=== PATIENT | male | born 1975 | race Caucasian/White ===

== ENCOUNTER 2017-05-27 14:10 | Emergency (ER) | payer BC, OTHER ==
[~2017-05-27] VITALS: Ht 172.7 cm; Wt 91.0 kg
[~2017-05-27 14:10] MED LIST: MULTTAB58 PO
[2017-05-27 14:24] VITALS: TEMP 37; Ht 172.7 cm; Wt 91.0 kg
[2017-05-27] MEDS ORDERED: DIPHTHERIA/TETANUS/PERTUSSIS 0.5 ML SYR/VIAL IM. ONE (14:45)
[2017-05-27] MEDS ORDERED: XYLOCAINE 1%/SOD BICARB 20 ML VIAL INFIL ONE (14:45)
--- NOTE | 2017-05-27 15:34 | DIAGNOSTIC IMAGING REPORT ---
RIGHT KNEE 3 VIEWS HISTORY: Right knee injury with chainsaw COMPARISON: None. FINDINGS: There is no fracture or dislocation. Soft tissue laceration along the anterior medial aspect of the knee. Trace knee effusion. No radiopaque foreign bodies. IMPRESSION: 1. No fractures. 2. Soft tissue laceration at the anterior medial knee. 3. Trace knee effusion. Electronically signed by: Benoit Brewer M.D. 05/27/2017 3:32 PM Dictated Date/Time: 05/27/2017 3:31 PM
[2017-05-27] MEDS ORDERED: DOXY100C2 PO (15:52)
[2017-05-27] MEDS ORDERED: ACYC800T PO (15:52)
[2017-05-27] MEDS ORDERED: CEFT1INJ26 IM (15:52)
[2017-05-27] MEDS ORDERED: Penicillin IM (15:52)
[2017-05-27] MEDS ORDERED: AZIT250T5 PO (15:52)
[2017-05-27] MEDS ORDERED: ATOV5SUS PO (15:52)
--- NOTE | 2017-05-27 16:24 | EMERGENCY ROOM VISIT NOTE ---
ED Visit Note First contact with patient: 14:42 CHIEF COMPLAINT: Leg laceration HISTORY OF PRESENT ILLNESS: This 41-year-old male patient presents to the emergency department immediately after cutting the right knee with a chainsaw. The bleeding has stopped. Denies problems with flexion and extension of the knee. The patient rates the pain as minimal and 2/10. The patient denies any other injuries. The patient's Tetanus shot is not up to date. REVIEW OF SYSTEMS: A 6 system review of systems was completed with positives and pertinent negatives listed in the HPI. ALLERGIES: No known drug allergies MEDICATIONS: Reviewed PMH: Disseminated Lyme disease SOCIAL HISTORY: He does not smoke. Occasionally drinks alcohol. PHYSICAL EXAM: Vital Signs: Reviewed Nurse's notes, vital signs stable. GENERAL : 41-year-old male, in no acute distress, well-developed, well-nourished. SKIN : There are 2 lacerations over the right knee. One is approximately 3 cm long. The other is approximately 2 cm long. The edges gape apart with traction. There is a small amount of debris in the wound. There is no active bleeding. No deep structures such as tendons, bones, or significant blood vessels are seen in the base of the wound. Normal strength and movement of the right knee. EMERGENCY DEPARTMENT COURSE: I examined the patient. A knee x-ray was performed RIGHT KNEE 3 VIEWS HISTORY: Right knee injury with chainsaw COMPARISON: None. FINDINGS: There is no fracture or dislocation. Soft tissue laceration along the anterior medial aspect of the knee. Trace knee effusion. No radiopaque foreign bodies. IMPRESSION: 1. No fractures. 2. Soft tissue laceration at the anterior medial knee. 3. Trace knee effusion. Electronically signed by: Benoit Brewer M.D. 05/27/2017 3:32 PM Dictated Date/Time: 05/27/2017 3:31 PM The status of this report is Signed. Draft = Not yet reviewed or approved by Radiologist. Signed = Reviewed and approved by Radiologist. Verbal consent was obtained to perform the procedure. Using sterile technique the wound was cleansed with Betadine. The area was sterilely draped. 6 ml of 1% buffered lidocaine was used to anesthetize the laceration on the knee. Once the patient was anesthetized, the wound was copiously irrigated under pressure with sterile saline. The wound was explored and was as described above. The laceration was repaired using 11 simple interrupted 4-0 nylon sutures with the wound edges being well approximated. The patient tolerated the procedure well. Hemostasis was achieved. The area was cleaned with sterile saline and dressed with bacitracin ointment and bandage. The patient was given Td immunization. The patient was discharged home in good condition. DIAGNOSIS: Right knee laceration DISCHARGE INSTRUCTIONS & TREATMENT: Keep wound clean. It is okay to gently wash the area with soapy water. Do not submerse it in water for long periods of time such as swimming, going in hot tubs or taking baths until the sutures come out. Do not allow any crusting or dried blood to accumulate on sutures. If this occurs, use a 1:1 solution of hydrogen peroxide/water on a Q-tip to clean the wound. Use an antibiotic ointment for 3-4 days, then let wound dry. Suture removal in 14 days. Return sooner for any signs of infection (increasing redness, swelling, drainage). Ice and elevate for swelling and pain. Ibuprofen 600 mg and Tylenol 1000 mg every 6 hrs for pain.
[2017-05-27 16:31] VITALS: BP 122/88; PULSE 70; O2SAT 96
== END 2017-05-27 16:32 | disposition home or self-care (01) ==
LOC: C.EDB 14:11
DX: S81.811A Laceration without foreign body, right lower leg, initial encounter (principal); W31.89XA Contact with other specified machinery, initial encounter

== ENCOUNTER 2025-06-04 12:21 | Inpatient (IN) ==
[2025-06-04] MEDS: ONDANSETRON INJ 2 MG/ML 2 ML VIAL IV STA ×2 (12:43→19:12)
[2025-06-04] MEDS: HYDROmorphone INJ 0.5 MG/0.5 ML SYR IV PRN (12:44)
[2025-06-04] MEDS: SODIUM CHLORIDE 0.9% 1,000 ML IV STA (12:48)
--- NOTE | 2025-06-04 13:02 | Emergency Department Note ---
Impression & Plan Lumbar disc herniation, Back pain, Kidney stones, Radiculopathy ED Provider Note NAME: CHARLI HOWELL AGE: 49 SEX: M : 1975 ARRIVES VIA: Walk-In INFORMANT: Patient, ED PROVIDER(S): Esteban Mccallum DO CHIEF COMPLAINT: Back pain HPI: The patient is a 49-year-old male who presented to the emergency department for an evaluation of back pain. The patient was seen recently for similar complaints. He was taking pain medication with minimal relief of his symptoms. The patient denies having any hematuria. He denies having any dysuria or frequency. He said no fever. He denies having any chest or vomiting. The patient has been taking the pain medication was prescribed but he presented to the emergency department today because of worsening symptoms. ROS: See above HPI for pertinent positives & negatives. A total of 10 systems reviewed and were otherwise negative. PAST MEDICAL HISTORY: See Below PAST SURGICAL HISTORY: See Below FAMILY HISTORY: See Below SOCIAL HISTORY: See Below HOME MEDICATIONS: See Below ALLERGIES: See Below VITALS: See Below PHYSICAL EXAMINATION: GENERAL: The patient is awake and alert. The patient is very anxious and appears to be uncomfortable. EYES: The conjunctivae are clear. The pupils are round and reactive. EARS, NOSE, MOUTH AND THROAT: The nose is without any evidence of any deformity. NECK: The neck is nontender and supple. RESPIRATORY: Normal respiratory effort is noted there is no evidence of wheezing rhonchi or rales CARDIOVASCULAR: Regular rate and rhythm noted there no murmurs rubs or gallops normal S1 normal S2. GASTROINTESTINAL: The abdomen is soft. Abdomen is nontender. BACK: Diffuse tenderness was noted over the lower lumbar spine. No step-off was noted. Range of motion appears intact but painful. MUSCULOSKELETAL/EXTREMITIES: There is no evidence of gross deformity full range of motion is noted in the hips and shoulders. SKIN: There is no obvious evidence of any rash. There are no petechiae, pallor or cyanosis noted. NEUROLOGIC: Patient is awake alert and oriented x3 strength is symmetric patellar reflexes are 2+ bilaterally. Achilles tendon reflexes are 2+ bilaterally. Great toe raise was symmetric. MEDICAL DECISION MAKING: The patient is a 49-year-old male who presented to the emergency department for an evaluation of back pain. The patient was seen in our facility recently and diagnosed with kidney stones. I reviewed the patient's CAT scan. He does have renal stones but no ureteral calculi. The patient was treated with pain medication in the emergency department. He was reevaluated multiple times. Given the degree of his pain as well as his complaints I do feel the patient would be a candidate for an MRI to further evaluate his symptoms. Unfortunately it did take a long time to get the radiographic studies. The patient was much more comfortable on reevaluation. His disposition is still pending at change of shift. The patient was signed out to Dr. Lyons pending MRI report. Given the patient's degree of pain he may be a candidate for inpatient management. His physical exam was very reassuring but his symptomatology certainly would warrant reevaluation and possible evaluation by orthopedic spinal specialist. Triage Nursing notes reviewed. Prior medical records reviewed Vital Signs: reviewed and remarkable for no significant abnormalities Differential diagnosis: Musculoskeletal, disc herniation, fracture, metastatic disease, cord compression, discitis, sciatica, cauda equina, infection, aortic disease, renal colic, gastrointestinal, as well as other pathologies. ER treatment provided: See below Diagnostics interpreted by me: ECG: none Cardiac Monitoring: An order was placed for continuous cardiac monitoring. The monitor shows a rate of 64 bpm with sinus rhythm. Laboratory studies: As stated above and show below. Imaging studies: See below. Radiographic imaging was reviewed by myself Consultation(s): The patient was signed out at change of shift to Dr. Lyons. MRIs are still pending at this time. The patient was much more comfortable on reevaluation. Past Med/Surg History Problem List (Updated 06/05/25 @ 07:42 by Esteban Mccallum DO) Lumbar disc herniation (Acute) Radiculopathy (Acute) Kidney stones (Acute) Back pain (Acute) Right-sided back pain Kidney stone on left side Renal colic on right side Foot pain, left Foot pain, right Health care maintenance Lyme disease Heart palpitations (Acute) Headache (Acute) Dehydration (Acute) Eczema (Chronic) Heart murmur (Chronic) Medical History Pain aggravated by eating or drinking Abdominal pain Left flank pain Family History Uncle Colorectal cancer Other Breast cancer Denies family history of Ovarian cancer Prostate cancer Myocardial infarction Social History Smoking Status: Never smoker Tobacco Type: Cigarettes and Smokeless Tobacco (Dip or Chew) Second Hand Exposure: No; Do You Dip or Chew Tobacco: No; Tobacco Cessation Education Requested by Patient: No Hx Alcohol Use: Yes Alcohol type: beer Hx Substance Use: No Preferred Language: Tajik Communication Ability: Effective Sales Utility Representative Required: No Beliefs That Will Affect Care: None marital status: Current Living Situation: Spouse current occupational status: employed 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 Other Information That Helps Us Care for You: No Feels Safe at Home: Yes Safety Concerns: Feels Safe At This Time Childhood Exposure to Second-Hand Smoke: No Dental Care, Regularly: Yes Physical Activity Frequency: Daily Physical Activity Frequency Comment: active job Seatbelt Use: always Sunscreen Use: Yes Assistive Devices: None Allergies Allergies Allergy/AdvReac Type Severity Reaction Status Date / Time buspirone AdvReac Severe Headache Verified 06/04/25 21:08 escitalopram AdvReac Severe panic Verified 06/04/25 21:08 attack Home Meds Home Medications Medication Instructions Recorded Confirmed ibuprofen 200 mg capsule 400 - 800 mg PO DIRECTED PRN 08/16/21 06/04/25 Pain Lactobacillus acidophilus 500 500 mmu cells PO DAILY 10/26/21 06/04/25 million cell capsule cholecalciferol (vitamin D3) 25 25 mcg PO DAILY 10/26/21 06/04/25 mcg (1,000 unit) tablet (Vitamin D3) Methylated Multivitamin 1 tab PO DAILY 06/04/25 06/04/25 testosterone cypionate 200 mg/mL See Rx Instructions .Route .COMPLEX 06/04/25 06/04/25 intramuscular syringe Results & Data (ED) Vital Signs Vital Signs - 24 hr 06/04/25 12:23 06/04/25 12:51 06/04/25 12:54 Temperature 36.6 C Temperature Source Temporal Artery Scan Pulse Rate 112 H 96 H 94 H Pulse Rate [Right Finger] Pulse Rate from SpO2 Sensor 95 H Pulse Rhythm Pulse Rhythm [Right Finger] Respiratory Rate 19 19 Respiratory Depth Blood Pressure 140/58 L 120/68 Blood Pressure [Right Arm] Blood Pressure Mean 85 85 Blood Pressure Mean [Right Arm] Pulse Oximetry 100 99 Oxygen Delivery Method Room Air Sepsis Recent Fever Within 48 Hours No Sepsis New/Unexplained Change in Mental Status N/A Sepsis Action Taken by Nursing No Action Required 06/04/25 13:10 06/04/25 13:12 06/04/25 14:42 Temperature Temperature Source Pulse Rate 93 H 90 70 Pulse Rate [Right Finger] Pulse Rate from SpO2 Sensor 91 H 70 Pulse Rhythm Regular Pulse Rhythm [Right Finger] Respiratory Rate 24 15 Respiratory Depth Blood Pressure 128/75 111/66 Blood Pressure [Right Arm] Blood Pressure Mean 92 81 Blood Pressure Mean [Right Arm] Pulse Oximetry 100 100 94 Oxygen Delivery Method Room Air Room Air Sepsis Recent Fever Within 48 Hours Sepsis New/Unexplained Change in Mental Status Sepsis Action Taken by Nursing 06/04/25 16:06 06/04/25 17:50 06/04/25 18:05 Temperature Temperature Source Pulse Rate 80 Pulse Rate [Right Finger] Pulse Rate from SpO2 Sensor 82 66 61 Pulse Rhythm Pulse Rhythm [Right Finger] Respiratory Rate 17 Respiratory Depth Blood Pressure 113/78 126/85 150/76 H Blood Pressure [Right Arm] Blood Pressure Mean 89 98 100 Blood Pressure Mean [Right Arm] Pulse Oximetry 94 92 95 Oxygen Delivery Method Room Air Sepsis Recent Fever Within 48 Hours Sepsis New/Unexplained Change in Mental Status Sepsis Action Taken by Nursing 06/04/25 20:20 Temperature Temperature Source Pulse Rate Pulse Rate [Right Finger] 70 Pulse Rate from SpO2 Sensor Pulse Rhythm Pulse Rhythm [Right Finger] Regular Respiratory Rate 16 Respiratory Depth Normal Blood Pressure Blood Pressure [Right Arm] 129/77 Blood Pressure Mean Blood Pressure Mean [Right Arm] 94 Pulse Oximetry 98 Oxygen Delivery Method Room Air Sepsis Recent Fever Within 48 Hours Sepsis New/Unexplained Change in Mental Status Sepsis Action Taken by Intermediate Medications Current Medication List: was personally reviewed by me Laboratory Data Attestation: I reviewed the patient's lab results. 06/05/25 06:26 06/05/25 06:26 Lab Results 06/04/25 06/04/25 Range/Units 12:43 13:24 WBC 8.01 (4.8-10.8) K/ul RBC 6.23 H (4.70-6.10) M/uL Hgb 18.4 H (14.0-18.0) g/dl Hct 52.1 H (42.0-52.0) % MCV 83.6 (80.0-100.0) fL MCH 29.5 (25.0-34.0) pg MCHC 35.3 (32.0-36.0) g/dL RDW Std Deviation 37.5 (36.4-46.3) fL RDW Coeff of Jorge 12.5 (11.5-14.5) % Plt Count 230 (130-400) K/uL MPV 10.2 (9.4-12.4) fL Immature Gran % (Auto) 0.4 % Neut % (Auto) 60.4 % Lymph % (Auto) 28.7 % [place] % (Auto) 8.2 % Eos % (Auto) 1.6 % Baso % (Auto) 0.7 % Neut # (Auto) 4.83 (1.40-6.50) K/uL Lymph # (Auto) 2.30 (1.20-3.40) K/uL [place] # (Auto) 0.66 H (0.11-0.59) K/uL Eos # (Auto) 0.13 (0.00-0.50) K/uL Baso # (Auto) 0.06 (0.00-0.20) K/uL Immature Gran # (Auto) 0.03 (0.01-0.20) K/uL Sodium 139 (136-145) mmol/L Potassium 3.9 (3.5-5.1) mmol/L Chloride 103 (98-107) mmol/L Carbon Dioxide 24 (21-32) mmol/L Anion Gap 12 H (3-11) BUN 12 (6-23) mg/dl Creatinine 1.21 (0.6-1.4) mg/dl Est Cr Clr Drug Dosing 79.2 ml/min eGFR 73.40 BUN/Creatinine Ratio 9.9 L (10-20) Glucose 93 (70-99(Fasting)) mg/dl Calcium 9.7 (8.6-10.3) mg/dl Total Bilirubin 1.2 H (0.2-1.0) mg/dl AST 24 (13-39) U/L ALT 30 (7-52) U/L Alkaline Phosphatase 59 (34-104) U/L Total Protein 7.4 (6.0-8.3) gm/dl Albumin 4.7 (3.4-5.0) gm/dl Globulin 2.7 (2.5-4.0) gm/dl Albumin/Globulin Ratio 1.7 (0.9-2) Lipase 13 (11-82) U/L Urine Color Yellow Urine Appearance Clear (Clear) Urine pH >= 9.0 H (4.5-7.5) Ur Specific [place] 1.006 (1.000-1.030) Urine Protein Negative (Negative) Urine Glucose (UA) Negative (Negative) Urine Ketones Trace H (Negative) Urine Blood Negative (Negative) Urine Nitrite Negative (Negative) Urine Bilirubin Negative (Negative) Urine Urobilinogen Negative (Negative) Ur Leukocyte Esterase Negative (Negative) Urine Comment Administered Medications Acetaminophen (Acetaminophen 500 Mg Tab) 1,000 mg PO Q8 [facility] Stop: 07/04/25 22:07 Last Admin: 06/05/25 07:11 Dose: Not Given Documented By: Admin: 06/04/25 22:31 Dose: 1,000 mg Documented By: LUISANA Cyclobenzaprine HCl (Cyclobenzaprine Hcl 10 Mg Tab) 10 mg PO BID [facility] Stop: 07/04/25 22:07 Last Admin: 06/05/25 07:35 Dose: 10 mg Documented By: Admin: 06/04/25 22:31 Dose: 10 mg Documented By: LUISANA Lactated Ringer's (Lr) 1,000 mls @ 110 mls/hr IV .Q9H6M [facility] Stop: 06/05/25 18:11 Last Admin: 06/05/25 00:04 Dose: 110 mls/hr Documented By: LUISANA Ketorolac Tromethamine (Ketorolac 30 Mg/Ml Vial) 30 mg IV Q6H PRN PRN Reason: Pain Stop: 06/09/25 22:07 Last Admin: 06/05/25 03:27 Dose: 30 mg Documented By: LUISANA Morphine Sulfate (Morphine Sulfate 4 Mg/Ml 1 Ml Carp\Vial) 4 mg IV Q3H PRN PRN Reason: Pain (6,7,8,9,10) Stop: 06/18/25 22:07 Last Admin: 06/05/25 07:34 Dose: 4 mg Documented By: Admin: 06/05/25 00:55 Dose: 4 mg Documented By: LUISANA Senna/Docusate Sodium (Docusate Sodium/Senna 50/8.6mg Tab) 2 tab PO HS [facility] Stop: 07/04/25 22:07 Last Admin: 06/04/25 22:31 Dose: Not Given Documented By: LUISANA Discontinued Medications Hydromorphone HCl (Hydromorphone Inj 0.5 Mg/0.5 Ml Syr) 0.5 mg IV Q15M PRN PRN Reason: Pain Stop: 06/18/25 12:39 Last Admin: 06/04/25 20:50 Dose: 0.5 mg Documented By: Admin: 06/04/25 19:03 Dose: 0.5 mg Documented By: Admin: 06/04/25 16:34 Dose: 0.5 mg Documented By: Admin: 06/04/25 15:01 Dose: 0.5 mg Documented By: Admin: 06/04/25 13:33 Dose: 0.5 mg Documented By: Admin: 06/04/25 12:44 Dose: 0.5 mg Documented By: SHERRY Sodium Chloride (Nss) 1,000 mls @ 999 mls/hr IV .Q1H1M STA Stop: 06/04/25 13:40 Last Infusion: 06/04/25 13:51 Dose: Infused Documented By: Admin: 06/04/25 12:48 Dose: 999 mls/hr Documented By: SHERRY Lidocaine (Lidocaine 5% 1 Patch) 1 patch TD NOW STA Stop: 06/04/25 21:00 Last Admin: 06/04/25 21:09 Dose: 1 patch Documented By: LAURE Lidocaine (Lidocaine 5% 1 Patch) 1 patch TD NOW STA Stop: 06/04/25 22:09 Last Admin: 06/04/25 22:31 Dose: Not Given Documented By: LUISANA Ondansetron HCl (Ondansetron Inj 2 Mg/Ml 2 Ml Vial) 4 mg IV NOW STA Stop: 06/04/25 12:41 Last Admin: 06/04/25 12:43 Dose: 4 mg Documented By: SHERRY Ondansetron HCl (Ondansetron Inj 2 Mg/Ml 2 Ml Vial) 4 mg IV NOW STA Stop: 06/04/25 19:10 Last Admin: 06/04/25 19:12 Dose: 4 mg Documented By: MILO Imaging Data Attestation: I personally reviewed and interpreted this imaging study as follows: My Impression: X-ray of the orbits were obtained. No metal foreign bodies were appreciated, final report below. Radiologist's Impression: Orbit X-Ray 06/04/25 14:37 XR orbits for MRI CLINICAL HISTORY: Screening for foreign body for MRI COMPARISON STUDY: None FINDINGS: No metallic foreign body seen at the orbits. IMPRESSION: No metallic foreign body seen at the orbits. ACT 112: Negative or not required by law. Electronically signed by: Charanjit Harvey M.D. 06/04/2025 3:17 PM Discharge Plan Visit Data Chief Complaint: Kidney Stone Stated Complaint: KIDNEY STONES ED Provider: Claire Lyons Discharge Problem: Lumbar disc herniation, Back pain, Kidney stones, Radiculopathy Patient Disposition: Admitted As Inpatient Condition: Fair Discharge Instructions Interventions: ED Discharge Assessment Last Done: 06/04/25 21:53
[2025-06-04 13:12] LABS: Hematocrit (blood only) 52.1 % (42.0-52.0); Hemoglobin 18.4 g/dl (14.0-18.0); Immature Granulocytes # (auto) 0.03 K/uL (0.01-0.20); Immature Granulocytes % (auto) 0.4 %; Mean Corpuscular Hemoglobin 29.5 pg (25.0-34.0); Mean Corpuscular Volume 83.6 fL (80.0-100.0); Platelet Count 230 K/uL (130-400); RDW Standard Deviation 37.5 fL (36.4-46.3); Red Blood Count 6.23 M/uL (4.70-6.10); White Blood Count 8.01 K/ul (4.8-10.8)
[2025-06-04 13:18] LABS: Alanine Aminotransferase 30.0 U/L (7-52); Albumin Globulin Ratio 1.7 (0.9-2); Albumin Level 4.7 gm/dl (3.4-5.0); Alkaline Phosphatase 59.0 U/L (34-104); Anion Gap 12.0 (3-11); Bilirubin,Total 1.2 mg/dl (0.2-1.0); Blood Urea Nitrogen 12.0 mg/dl (6-23); Calcium 9.7 mg/dl (8.6-10.3); Carbon Dioxide 24.0 mmol/L (21-32); Chloride 103.0 mmol/L (98-107); Creatinine Clr Calc Pharmacy 79.2 ml/min; Globulin 2.7 gm/dl (2.5-4.0); Glucose 93.0 mg/dl (70-99(Fasting)); Lipase 13.0 U/L (11-82); Potassium 3.9 mmol/L (3.5-5.1); Sodium 139.0 mmol/L (136-145); Total Protein 7.4 gm/dl (6.0-8.3)
[2025-06-04 13:39] LABS: Appearance Urine Clear (Clear); Glucose Urine UA Negative (Negative)
--- NOTE | 2025-06-04 15:18 | XRay Report ---
XR orbits for MRI CLINICAL HISTORY: Screening for foreign body for MRI COMPARISON STUDY: None FINDINGS: No metallic foreign body seen at the orbits. IMPRESSION: No metallic foreign body seen at the orbits. ACT 112: Negative or not required by law. Electronically signed by: Charanjit Harvey M.D. 06/04/2025 3:17 PM
--- NOTE | 2025-06-04 17:14 | Emergency Department Note ---
ED Visit Note Date and Time: 06/04/2025 1700 Interval History: Sign out received from Dr. Mccallum who reviewed details of the encounter. Patient was pending MRI of the lumbar spine. Summary: Patient Continued to have left-sided pain and nausea. He required additional doses of Dilaudid and Zofran. MRI showed evidence of significant disc herniation at L3 level with impingement on the exiting nerve root. This is most likely the cause of the patient's symptoms. I discussed the case with Dr. Mac who will evaluate him in the morning. The patient will be admitted to the hospitalist service. .
--- NOTE | 2025-06-04 17:48 | Magnetic Resonance Report ---
Clinical History: Lower back pain Technique: Sagittal and axial T1 and T2-weighted magnetic resonance images were obtained of the lumbar spine without gadolinium contrast. Findings: S1 is transitional. There is mild scoliosis. No listhesis is seen. No focal osseous lesion is evident. No fracture is identified. There is no definite sign of infection. There is no sign of acute ligamentous injury. The conus medullaris appears normal, terminating at the level of T12-L1. At L1-L2, no pathology is seen At L2-L3, there is a disc bulge and a 22 x 15 x 7 mm left paracentral disc herniation compresses the left L3 nerve root. There is left greater than right neural foramen narrowing that may affect the left L2 nerve root At L3-L4, there is a disc bulge and a small central disc protrusion, without spinal stenosis or compression of the traversing nerve roots. There is mild bilateral neural foramen narrowing At L4-L5, there is a mild disc bulge. There is no spinal stenosis or compression of the traversing nerve roots. There is mild bilateral neural foramen narrowing At L5-S1, there is a disc bulge and a broad-based central disc protrusion that compresses the anterior thecal sac. There is no significant spinal stenosis or compression of the traversing nerve roots. There is bilateral neural foramen narrowing that may affect the exiting L5 nerve roots At S1-2, there is a mild disc bulge without spinal stenosis or nerve root compression. There is mild bilateral neural foramen narrowing Impression: 1. Mild scoliosis 2. Transitional vertebra at the lumbosacral junction, considered S1 in this report 3. L2-3 disc herniation that compresses the left L3 nerve root 4. Left L2-3 and bilateral L5-S1 neural foramen narrowing, which may affect the exiting nerve roots. Less severe neural foramen narrowing is seen at other levels ACT 112: Positive. There are findings on this exam that require communication between the performing entity and the patient following Patient Test Result Information Act ([place] ACT 112) guidelines. Electronically signed by Satnam Burnett 06-04-2025 5:48 PM
--- NOTE | 2025-06-04 17:58 | Magnetic Resonance Report ---
Clinical history: Back pain Technique: Sagittal and axial T1 and T2-weighted magnetic resonance images were obtained of the thoracic spine without gadolinium contrast Findings: The thoracic vertebrae are in normal alignment with no listhesis seen. No fracture is identified. No focal osseous lesion is seen. There is overall normal bone marrow signal intensity. There is no sign of acute ligamentous injury. There is no definite sign of infection. The spinal cord is of normal signal intensity with no focal lesion seen. No definite soft tissue mass or fluid collection is identified. At T1-2, no pathology is seen At T2-3, there is a minimal disc bulge without spinal stenosis. There is mild bilateral neural foramen narrowing At T3-4, there is a mild disc bulge without spinal stenosis or nerve root compression At T4-5, there is mild spinal stenosis at site spinal cord deformity due to a disc bulge and a left paracentral disc protrusion. There is left neural foramen narrowing that may affect the left T4 nerve root At T5-6, there is mild spinal stenosis with slight spinal cord deformity due to a disc bulge and a right paracentral disc protrusion. The neural foramen are patent At T6-7, there is a disc bulge without spinal stenosis. There is mild left neural foramen narrowing From T7-8 through T11-12, no disc herniation is present. There is no spinal stenosis or nerve root compression Impression: 1. Mild spinal stenosis at T4-5 and T5-6 with mild spinal cord deformity due to disc bulges and disc herniations. No cord edema or myelomalacia is seen 2. Left T4-5 neural foramen narrowing that may affect the left T4 nerve root ACT 112: Positive. There are findings on this exam that require communication between the performing entity and the patient following Patient Test Result Information Act ([place] ACT 112) guidelines. Electronically signed by Satnam Burnett 06-04-2025 5:57 PM
--- NOTE | 2025-06-04 20:24 | History & Physical Report ---
Date of Service June 04, 2025 Assessment & Plan (1) Lumbar disc herniation: (2) Back pain: (3) Radiculopathy: Plan 49-year-old male presenting with several days of progressive left back pain with radicular symptoms. Found to have L2-3 disc herniation that compresses the left L3 nerve root. Patient's numbness correspond closely with L3 distribution. No trauma, no fever. Motor strength and reflexes are intact. #Lumbar disc herniation/back pain/radiculopathy Admit to medical telemetry Keep n.p.o. after midnight in the event of possible surgery LR at 110 mL/h x 2 L Bladder scan with straight cath as needed Tylenol 1 g p.o. 3 times daily scheduled Toradol 40 mg IV every 6 hours as needed Morphine 2-4 mg IV every 3 hours based on pain scale Lidoderm patch Flexeril 10 mg p.o. twice daily as needed Heat PT/OT Orthopedics/spine consultation appreciated Patient would prefer to avoid steroids if possible because steroids tend to aggravate his sequela from prior Lyme infection #DVT prophylaxisSCDs History of Present Illness Chief Complaint: Left-sided back pain, numbness left thigh Primary Care Provider: Esteban Miguel MD [facility]ters is a 49yo male with history of Lyme presenting with severe pain in the left back with numbness left thigh. Patient was seen in the ER on 05/28 and thought to have renal stones. He was discharged home on pain management. He has been taking oxycodone every 4 hours as well as a muscle relaxer and ibuprofen but has not had ongoing severe pain. Also with numbness in the left lateral thigh. Symptoms have been ongoing for the last 3 to 4 days. No falls or trauma. He was having some back pain earlier in the week which acutely worsened after he knelt down to tie his shoe. Did not hear a pop or crack. Initially reports some difficulty starting his urinary stream but that has since resolved. Otherwise, denies bowel or bladder complaints. In the ER patient is afebrile, mildly hypertensive otherwise doing well Allergies Allergy/AdvReac Type Severity Reaction Status Date / Time buspirone AdvReac Severe Headache Verified 06/04/25 21:08 escitalopram AdvReac Severe panic Verified 06/04/25 21:08 attack Home Medications Medication Instructions Recorded Confirmed Type ibuprofen 200 mg capsule 400 - 800 mg PO DIRECTED PRN 12/13/21 10/01/25 Hi story Pain Lactobacillus acidophilus 500 500 mmu cells PO DAILY 10/26/21 06/04/25 History million cell capsule cholecalciferol (vitamin D3) 25 25 mcg PO DAILY 10/26/21 06/04/25 History mcg (1,000 unit) tablet (Vitamin D3) Methylated Multivitamin 1 tab PO DAILY 06/04/25 06/04/25 History testosterone cypionate 200 mg/mL See Rx Instructions .Route .COMPLEX 06/04/25 06/04/25 History intramuscular syringe Past Med/Surg History Problem List (Updated 06/05/25 @ 03:03 by Nitza Moscoso DO) Lumbar disc herniation Radiculopathy Kidney stones (Acute) Back pain (Acute) Right-sided back pain Kidney stone on left side Renal colic on right side Foot pain, left Foot pain, right Health care maintenance Lyme disease Heart palpitations (Acute) Headache (Acute) Dehydration (Acute) Eczema (Chronic) Heart murmur (Chronic) Medical History Pain aggravated by eating or drinking Abdominal pain Left flank pain Family History Uncle Colorectal cancer Other Breast cancer Denies family history of Ovarian cancer Prostate cancer Myocardial infarction Social History Smoking Status: Never smoker Tobacco Type: Cigarettes and Smokeless Tobacco (Dip or Chew) Second Hand Exposure: No; Do You Dip or Chew Tobacco: No; Tobacco Cessation Education Requested by Patient: No Hx Alcohol Use: Yes Alcohol type: beer Hx Substance Use: No Preferred Language: Danish Communication Ability: Effective Roll Over Press Operator Required: No Beliefs That Will Affect Care: None marital status: Current Living Situation: Spouse current occupational status: employed current occupation: Utility System Operator Other Information That Helps Us Care for You: No Feels Safe at Home: Yes Safety Concerns: Feels Safe At This Time Childhood Exposure to Second-Hand Smoke: No Dental Care, Regularly: Yes Physical Activity Frequency: Daily Physical Activity Frequency Comment: active job Seatbelt Use: always Sunscreen Use: Yes Assistive Devices: None Review of Systems Review of Systems: All systems reviewed & are unremarkable except as noted in HPI & below Physical Exam Physical Exam: General: patient resting comfortably, NAD, non-toxic in appearance, AA&O x 4 Skin: warm, dry, intact, no rashes or lesions HEENT: NC/AT, PERRL, EOMI, anicteric sclera, conjunctiva without injection, external ear normal to inspection and nontender, nares patent, moist mucus membranes, dentition intact, no oropharyngeal lesions, neck supple, trachea midline, no LAD, no thyromegaly, no JVD Heart: +S1/S2, regular, no m/r/g Lungs: equal air entry bilaterally, no rales/rhonchi/wheezes Abd: +BS, soft, NT/ND, no masses/organomegaly/ascites Ext: warm, 2+ pulses in UE/LE bilaterally, no clubbing/cyanosis or edema Neuro: nonfocal, patient AA&O x 4, speech intact, no facial droop, moving all extremities on command with equal strength 5/5, Numbness on left anterior thigh strength and reflexes intact Results & Data Results & Data Vital Signs (Past 12 Hours) Vital Signs Temp Pulse Pulse Resp BP BP Pulse Ox 06/04/25 20:20 70 16 129/77 98 06/04/25 18:05 150/76 H 95 06/04/25 17:50 126/85 92 06/04/25 16:06 80 17 113/78 94 06/04/25 14:42 70 15 111/66 94 06/04/25 13:12 90 24 128/75 100 06/04/25 13:10 93 H 100 06/04/25 12:54 94 H 19 120/68 99 06/04/25 12:51 96 H 06/04/25 12:23 36.6 C 112 H 19 140/58 L 100 O2 Del Method 06/04/25 20:20 Room Air 06/04/25 18:05 Room Air 06/04/25 17:50 06/04/25 16:06 06/04/25 14:42 Room Air 06/04/25 13:12 06/04/25 13:10 Room Air 06/04/25 12:54 06/04/25 12:51 06/04/25 12:23 Room Air Laboratory Results Laboratory Results WBC 8.01 K/ul (4.8-10.8) 06/04/25 12:43 RBC 6.23 M/uL (4.70-6.10) H 06/04/25 12:43 Hgb 18.4 g/dl (14.0-18.0) H 06/04/25 12:43 Hct 52.1 % (42.0-52.0) H 06/04/25 12:43 MCV 83.6 fL (80.0-100.0) 06/04/25 12:43 MCH 29.5 pg (25.0-34.0) 06/04/25 12:43 MCHC 35.3 g/dL (32.0-36.0) 06/04/25 12:43 RDW Std Deviation 37.5 fL (36.4-46.3) 06/04/25 12:43 RDW Coeff of Jorge 12.5 % (11.5-14.5) 06/04/25 12:43 Plt Count 230 K/uL (130-400) 06/04/25 12:43 MPV 10.2 fL (9.4-12.4) 06/04/25 12:43 Immature Gran % (Auto) 0.4 % 06/04/25 12:43 Neut % (Auto) 60.4 % 06/04/25 12:43 Lymph % (Auto) 28.7 % 06/04/25 12:43 Citrus % (Auto) 8.2 % 06/04/25 12:43 Eos % (Auto) 1.6 % 06/04/25 12:43 Baso % (Auto) 0.7 % 06/04/25 12:43 Neut # (Auto) 4.83 K/uL (1.40-6.50) 06/04/25 12:43 Lymph # (Auto) 2.30 K/uL (1.20-3.40) 06/04/25 12:43 Citrus # (Auto) 0.66 K/uL (0.11-0.59) H 06/04/25 12:43 Eos # (Auto) 0.13 K/uL (0.00-0.50) 06/04/25 12:43 Baso # (Auto) 0.06 K/uL (0.00-0.20) 06/04/25 12:43 Immature Gran # (Auto) 0.03 K/uL (0.01-0.20) 06/04/25 12:43 Sodium 139 mmol/L (136-145) 06/04/25 12:43 Potassium 3.9 mmol/L (3.5-5.1) 06/04/25 12:43 Chloride 103 mmol/L (98-107) 06/04/25 12:43 Carbon Dioxide 24 mmol/L (21-32) 06/04/25 12:43 Anion Gap 12 (3-11) H 06/04/25 12:43 BUN 12 mg/dl (6-23) 06/04/25 12:43 Creatinine 1.21 mg/dl (0.6-1.4) 06/04/25 12:43 Est Cr Clr Drug Dosing 79.2 ml/min 06/04/25 12:43 eGFR 73.40 06/04/25 12:43 BUN/Creatinine Ratio 9.9 (10-20) L 06/04/25 12:43 Glucose 93 mg/dl (70-99(Fasting)) 06/04/25 12:43 Calcium 9.7 mg/dl (8.6-10.3) 06/04/25 12:43 Total Bilirubin 1.2 mg/dl (0.2-1.0) H 06/04/25 12:43 AST 24 U/L (13-39) 06/04/25 12:43 ALT 30 U/L (7-52) 06/04/25 12:43 Alkaline Phosphatase 59 U/L (34-104) 06/04/25 12:43 Total Protein 7.4 gm/dl (6.0-8.3) 06/04/25 12:43 Albumin 4.7 gm/dl (3.4-5.0) 06/04/25 12:43 Globulin 2.7 gm/dl (2.5-4.0) 06/04/25 12:43 Albumin/Globulin Ratio 1.7 (0.9-2) 06/04/25 12:43 Lipase 13 U/L (11-82) 06/04/25 12:43 Urine Color Yellow 06/04/25 13:24 Urine Appearance Clear (Clear) 06/04/25 13:24 Urine pH >= 9.0 (4.5-7.5) H 06/04/25 13:24 Ur Specific [place] 1.006 (1.000-1.030) 06/04/25 13:24 Urine Protein Negative (Negative) 06/04/25 13:24 Urine Glucose (UA) Negative (Negative) 06/04/25 13:24 Urine Ketones Trace (Negative) H 06/04/25 13:24 Urine Blood Negative (Negative) 06/04/25 13:24 Urine Nitrite Negative (Negative) 06/04/25 13:24 Urine Bilirubin Negative (Negative) 06/04/25 13:24 Urine Urobilinogen Negative (Negative) 06/04/25 13:24 Ur Leukocyte Esterase Negative (Negative) 06/04/25 13:24 Urine Comment 06/04/25 13:24 Impressions Lumbar Spine MRI 06/04/25 13:08 Clinical History: Lower back pain Technique: Sagittal and axial T1 and T2-weighted magnetic resonance images were obtained of the lumbar spine without gadolinium contrast. Findings: S1 is transitional. There is mild scoliosis. No listhesis is seen. No focal osseous lesion is evident. No fracture is identified. There is no definite sign of infection. There is no sign of acute ligamentous injury. The conus medullaris appears normal, terminating at the level of T12-L1. At L1-L2, no pathology is seen At L2-L3, there is a disc bulge and a 22 x 15 x 7 mm left paracentral disc herniation compresses the left L3 nerve root. There is left greater than right neural foramen narrowing that may affect the left L2 nerve root At L3-L4, there is a disc bulge and a small central disc protrusion, without spinal stenosis or compression of the traversing nerve roots. There is mild bilateral neural foramen narrowing At L4-L5, there is a mild disc bulge. There is no spinal stenosis or compression of the traversing nerve roots. There is mild bilateral neural foramen narrowing At L5-S1, there is a disc bulge and a broad-based central disc protrusion that compresses the anterior thecal sac. There is no significant spinal stenosis or compression of the traversing nerve roots. There is bilateral neural foramen narrowing that may affect the exiting L5 nerve roots At S1-2, there is a mild disc bulge without spinal stenosis or nerve root compression. There is mild bilateral neural foramen narrowing Impression: 1. Mild scoliosis 2. Transitional vertebra at the lumbosacral junction, considered S1 in this report 3. L2-3 disc herniation that compresses the left L3 nerve root 4. Left L2-3 and bilateral L5-S1 neural foramen narrowing, which may affect the exiting nerve roots. Less severe neural foramen narrowing is seen at other levels ACT 112: Positive. There are findings on this exam that require communication between the performing entity and the patient following Patient Test Result Information Act ([place] ACT 112) guidelines. Electronically signed by Satnam Burnett 06-04-2025 5:48 PM Thoracic Spine MRI 06/04/25 13:08 Clinical history: Back pain Technique: Sagittal and axial T1 and T2-weighted magnetic resonance images were obtained of the thoracic spine without gadolinium contrast Findings: The thoracic vertebrae are in normal alignment with no listhesis seen. No fracture is identified. No focal osseous lesion is seen. There is overall normal bone marrow signal intensity. There is no sign of acute ligamentous injury. There is no definite sign of infection. The spinal cord is of normal signal intensity with no focal lesion seen. No definite soft tissue mass or fluid collection is identified. At T1-2, no pathology is seen At T2-3, there is a minimal disc bulge without spinal stenosis. There is mild bilateral neural foramen narrowing At T3-4, there is a mild disc bulge without spinal stenosis or nerve root compression At T4-5, there is mild spinal stenosis at site spinal cord deformity due to a disc bulge and a left paracentral disc protrusion. There is left neural foramen narrowing that may affect the left T4 nerve root At T5-6, there is mild spinal stenosis with slight spinal cord deformity due to a disc bulge and a right paracentral disc protrusion. The neural foramen are patent At T6-7, there is a disc bulge without spinal stenosis. There is mild left neural foramen narrowing From T7-8 through T11-12, no disc herniation is present. There is no spinal stenosis or nerve root compression Impression: 1. Mild spinal stenosis at T4-5 and T5-6 with mild spinal cord deformity due to disc bulges and disc herniations. No cord edema or myelomalacia is seen 2. Left T4-5 neural foramen narrowing that may affect the left T4 nerve root ACT 112: Positive. There are findings on this exam that require communication between the performing entity and the patient following Patient Test Result Information Act ([place] ACT 112) guidelines. Electronically signed by Satnam Burnett 06-04-2025 5:57 PM Orbit X-Ray 06/04/25 14:37 XR orbits for MRI CLINICAL HISTORY: Screening for foreign body for MRI COMPARISON STUDY: None FINDINGS: No metallic foreign body seen at the orbits. IMPRESSION: No metallic foreign body seen at the orbits. ACT 112: Negative or not required by law. Electronically signed by: Charanjit Harvey M.D. 06/04/2025 3:17 PM PG Care Time/CCT Total # of Minutes Spent Total Time Spent with Patient: Total time spent is greater than 50% in coordination of care (as documented) at patient's floor/unit and/or counseling patient: Coding Level of Care Code 68489 INT INP/OBS CARE 375MIN Diagnoses Lumbar disc herniation M51.26 Back pain M54.9 Radiculopathy M54.10
[2025-06-04] MEDS: LIDOCAINE 5% 1 PATCH TD STA ×2 (21:09→22:31)
[2025-06-04] MEDS ORDERED: MoRPHine SULFATE 2 MG/ML CARP IV PRN (22:08)
[2025-06-04] MEDS ORDERED: POLYETHYLENE (MIRALAX) 17 GM PACK PO PRN (22:08)
[2025-06-04] MEDS ORDERED: ONDANSETRON INJ 2 MG/ML 2 ML VIAL IV PRN (22:08)
[2025-06-04] MEDS: DOCUSATE SODIUM/SENNA 50/8.6MG TAB PO SCH (22:31)
[2025-06-04] MEDS: ACETAMINOPHEN 500 MG TAB PO SCH (22:31)
[2025-06-04] MEDS: CYCLOBENZAPRINE HCL 10 MG TAB PO SCH (22:31)
[2025-06-05] MEDS: LACTATED RINGER'S 1,000 ML IV SCH (00:04)
[2025-06-05] MEDS: MoRPHine SULFATE 4 MG/ML 1 ML CARP\\VIAL IV PRN (00:55)
[2025-06-05] MEDS: KETOROLAC 30 MG/ML VIAL IV PRN (03:27)
[2025-06-05 07:19] LABS: Anion Gap 5.0 (3-11); Blood Urea Nitrogen 18.0 mg/dl (6-23); Calcium 8.4 mg/dl (8.6-10.3); Carbon Dioxide 28.0 mmol/L (21-32); Chloride 106.0 mmol/L (98-107); Creatinine Clr Calc Pharmacy 80.7 ml/min; Glucose 82.0 mg/dl (70-99(Fasting)); Potassium 4.0 mmol/L (3.5-5.1); Sodium 139.0 mmol/L (136-145)
[2025-06-05 07:35] LABS: Hematocrit (blood only) 47.8 % (42.0-52.0); Hemoglobin 15.8 g/dl (14.0-18.0); Mean Corpuscular Hemoglobin 29.4 pg (25.0-34.0); Mean Corpuscular Volume 88.8 fL (80.0-100.0); Platelet Count 182 K/uL (130-400); RDW Standard Deviation 41.7 fL (36.4-46.3); Red Blood Count 5.38 M/uL (4.70-6.10); White Blood Count 5.79 K/ul (4.8-10.8)
--- NOTE | 2025-06-05 08:29 | Orthopedic Consultation ---
Date of Consultation June 05, 2025 Assessment & Plan (1) Lumbar disc herniation: Assessment L to L3 disc herniation with free fragment migrating cephalad on the left. Plan the patient's MRI clearly supports his clinical presentation. We discussed possible treatment options. This could include consultation with interventional pain management and trial of epidural injections. Ultimately if he fails to improve continues to require narcotic medications and pain becomes incapacitating lumbar laminectomy with removal of herniated fragment would be reasonable. At this time he would prefer to pursue a nonoperative approach if possible. I will consult interventional pain management. If he is any change or marked clinical status we can always consider surgery. History of Present Illness Reason for Consultation: Left leg pain Attending Physician: Ella Banks MD History of Present Illness This a very pleasant 49-year-old male who presents to emergency room yesterday for the second time complaining of severe pain involving the left buttock left anterior thigh. The shocklike symptoms. He denies any specific trauma fall or event. He states the symptoms began approximately a week ago. The right lower extremity is asymptomatic. He is requiring significant medications to control his symptoms at this time. This morning he is comfortable while in bed. He states he has been able to ambulate to the bathroom. Allergies Allergy/AdvReac Type Severity Reaction Status Date / Time buspirone AdvReac Severe Headache Verified 06/04/25 21:08 escitalopram AdvReac Severe panic Verified 06/04/25 21:08 attack Home Medications Medication Instructions Recorded Confirmed Type ibuprofen 200 mg capsule 400 - 800 mg PO DIRECTED PRN 08/16/21 06/04/25 History Pain Lactobacillus acidophilus 500 500 mmu cells PO DAILY 10/26/21 06/04/25 History million cell capsule cholecalciferol (vitamin D3) 25 25 mcg PO DAILY 10/26/21 06/04/25 History mcg (1,000 unit) tablet (Vitamin D3) Methylated Multivitamin 1 tab PO DAILY 06/04/25 06/04/25 History testosterone cypionate 200 mg/mL See Rx Instructions .Route .COMPLEX 06/04/25 06/04/25 History intramuscular syringe Patient History Medical History Pain aggravated by eating or drinking Abdominal pain Left flank pain Family History Uncle Colorectal cancer Other Breast cancer Denies family history of Ovarian cancer Prostate cancer Myocardial infarction Social History Smoking Status: Never smoker Tobacco Type: Cigarettes and Smokeless Tobacco (Dip or Chew) Second Hand Exposure: No; Do You Dip or Chew Tobacco: No; Tobacco Cessation Education Requested by Patient: No Hx Alcohol Use: Yes Alcohol type: beer Hx Substance Use: No Preferred Language: Chinese Communication Ability: Effective Rock Breaker Required: No Beliefs That Will Affect Care: None marital status: Current Living Situation: Spouse current occupational status: employed current occupation: Freelance Makeup Artist Other Information That Helps Us Care for You: No Feels Safe at Home: Yes Safety Concerns: Feels Safe At This Time Childhood Exposure to Second-Hand Smoke: No Dental Care, Regularly: Yes Physical Activity Frequency: Daily Physical Activity Frequency Comment: active job Seatbelt Use: always Sunscreen Use: Yes Assistive Devices: None Physical Exam Physical Exam: On exam he has no gross tension signs. He has plus 4 out of 5 plantarflexion dorsiflexion quadriceps. Sensory is intact. Results & Data Vital Signs (Past 12 Hours) Vital Signs Temp Pulse Pulse Pulse Resp BP BP 06/05/25 07:39 36.5 C 90 18 06/05/25 05:51 64 06/05/25 04:00 36.6 C 78 18 131/79 06/04/25 22:14 36.8 C 75 16 06/04/25 22:05 72 06/04/25 21:53 80 18 125/74 06/04/25 21:13 82 BP Pulse Ox O2 Del Method 06/05/25 07:39 127/78 100 Room Air 06/05/25 05:51 06/05/25 04:00 97 Room Air 06/04/25 22:14 139/86 98 Room Air 06/04/25 22:05 06/04/25 21:53 98 Room Air 06/04/25 21:13
[2025-06-05] MEDS ORDERED: REMOVE LIDODERM PATCH SCH (09:00)
[2025-06-05] MEDS: REMOVE LIDODERM PATCH SCH (10:10)
--- NOTE | 2025-06-05 12:55 | Pain Management Consultation ---
Date of Consultation June 05, 2025 Assessment & Plan (1) Lumbar disc herniation: Plan 1. We have discussed pursuing a left L2-L3 transforaminal epidural steroid injection on an outpatient basis. I spent a good deal of time with him explaining expectations and he would like to proceed with surgery if Dr. Mac finds it indicated. 2. Could consider the initiation of gabapentin and an oral prednisone taper. He has not been placed on a prednisone taper as he finds that it does aggravate symptoms from prior Lyme disease infection. 3. No changes were made to his medication regimen of Tylenol, Flexeril, Toradol, morphine. 4. Will sign off on the patient. Please contact with any questions or concerns. History of Present Illness Attending Physician: Ella Banks MD History of Present Illness This is a 49-year-old male that has been admitted to the [facility] for acute low back pain. He states that this pain started abruptly 1 week ago after he was bending forward to pick something off the ground he felt a sudden popping pain along the left low back. He describes a constant deep aching along the low back and a burning searing sensation along the anterior aspect of the left thigh. He approximates 25% axial pain and 75% radicular symptoms. He did go to the emergency department on 05/28/2025 for this pain and assumed that it was a kidney stone. He was sent home with etodolac, oxycodone, cyclobenzaprine. He states that he was taking these medications every 4 hours which was barely addressing the pain. He did then visit the emergency department again yesterday and found to have a disc herniation at L2-L3 that is impinging upon the left L3 nerve and admitted for pain control. Pain is aggravated with standing and improved with laying supine. He reports significant limitation to performing his daily activities. He states that he has not been able to sleep due to the pain and discomfort. He has been evalua haim by Dr. Mac and they did discuss pursuing interventional procedures prior to consideration of surgical options. Patient denies any bowel/bladder incontinence, saddle anesthesia, foot drop, leg weakness, falls. Case discussed with Dr. Camille Fragoso Allergies Allergy/AdvReac Type Severity Reaction Status Date / Time buspirone AdvReac Severe Headache Verified 06/04/25 21:08 escitalopram AdvReac Severe panic Verified 06/04/25 21:08 attack Home Medications Medication Instructions Recorded Confirmed Type ibuprofen 200 mg capsule 400 - 800 mg PO DIRECTED PRN 08/16/21 06/04/25 History Pain Lactobacillus acidophilus 500 500 mmu cells PO DAILY 10/26/21 06/04/25 History million cell capsule cholecalciferol (vitamin D3) 25 25 mcg PO DAILY 10/26/21 06/04/25 History mcg (1,000 unit) tablet (Vitamin D3) Methylated Multivitamin 1 tab PO DAILY 06/04/25 06/04/25 History testosterone cypionate 200 mg/mL See Rx Instructions .Route .COMPLEX 06/04/25 06/04/25 History intramuscular syringe Patient History Medical History Pain aggravated by eating or drinking Abdominal pain Left flank pain Family History Uncle Colorectal cancer Other Breast cancer Denies family history of Ovarian cancer Prostate cancer Myocardial infarction Social History Smoking Status: Never smoker Tobacco Type: Cigarettes and Smokeless Tobacco (Dip or Chew) Second Hand Exposure: No; Do You Dip or Chew Tobacco: No; Tobacco Cessation Education Requested by Patient: No Hx Alcohol Use: Yes Alcohol type: beer Hx Substance Use: No Preferred Language: Kinyarwanda Communication Ability: Effective 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 Able to stand up without any difficulty. HEAD/FACE: Normocephalic and atraumatic. EYES: No drainage or conjunctival injection. ENT: Nose without bleeding or discharge. Oral mucosa moist. NECK: Full ROM without apparent pain. No swelling or masses noted. RESPIRATORY: Patient with unlabored breathing. No signs of respiratory distress. CHEST/AXILLA: Chest movement symmetrical. No deformities noted. ABDOMEN/GI: No distension BACK: Moves without difficulty SKIN: [place], warm and dry. No rash noted. MS/EXTREMITY: 5/5 strength of the lower extremities. Negative straight leg raise. NEURO: Alert and appears oriented. Speech is fluent. Cranial Nerves are grossly intact. PSYCH: Alert, pleasant, anxious Results (Pain Clinic) Diagnostic Review MRI Findings: Clinical History: Lower back pain Technique: Sagittal and axial T1 and T2-weighted magnetic resonance images were obtained of the lumbar spine without gadolinium contrast. Findings: S1 is transitional. There is mild scoliosis. No listhesis is seen. No focal osseous lesion is evident. No fracture is identified. There is no definite sign of infection. There is no sign of acute ligamentous injury. The conus medullaris appears normal, terminating at the level of T12-L1. At L1-L2, no pathology is seen At L2-L3, there is a disc bulge and a 22 x 15 x 7 mm left paracentral disc herniation compresses the left L3 nerve root. There is left greater than right neural foramen narrowing that may affect the left L2 nerve root At L3-L4, there is a disc bulge and a small central disc protrusion, without spinal stenosis or compression of the traversing nerve roots. There is mild bilateral neural foramen narrowing At L4-L5, there is a mild disc bulge. There is no spinal stenosis or compression of the traversing nerve roots. There is mild bilateral neural foramen narrowing At L5-S1, there is a disc bulge and a broad-based central disc protrusion that compresses the anterior thecal sac. There is no significant spinal stenosis or compression of the traversing nerve roots. There is bilateral neural foramen narrowing that may affect the exiting L5 nerve roots At S1-2, there is a mild disc bulge without spinal stenosis or nerve root compression. There is mild bilateral neural foramen narrowing Impression: 1. Mild scoliosis 2. Transitional vertebra at the lumbosacral junction, considered S1 in this report 3. L2-3 disc herniation that compresses the left L3 nerve root 4. Left L2-3 and bilateral L5-S1 neural foramen narrowing, which may affect the exiting nerve roots. Less severe neural foramen narrowing is seen at other levels ACT 112: Positive. There are findings on this exam that require communication between the performing entity and the patient following Patient Test Result Information Act ([place] ACT 112) guidelines. Electronically signed by Satnam Burnett 06-04-2025 5:48 PM
--- NOTE | 2025-06-05 14:59 | Hospitalist Progress Note ---
"Date of Service June 05, 2025 Assessment & Plan (1) Lumbar disc herniation: (2) Back pain: (3) Radiculopathy: Plan #Lumbar disc herniation|lumbar back pain|radiculopathy -NSR 60s-90s med-tele LR at 110 mL/h x 2 L Bladder scan with straight cath as needed Tylenol 1 g PO TID scheduled Toradol 30 mg IV every 6 hours as needed -Morphine 2-4 mg IV every 3 hours based on pain scale Flexeril 10 mg po BID PRN for lumbar spasms PT/OT -pain management consultation signed off as he opts to proceed with surgery, consideration of addition of Gabapentin if needed -orthopedic spine consultation with Dr. Mac-electing for surgery, scheduled 06/05/25 -diet advanced to regular, NPO after MN tonight #DVT prophylaxisSCDs Admission and Anticipated Discharge Date Admission Date: June 04, 2025 Subjective Patient lying in bed this am. Seen in ED at [facility] on 05/28/25 for c/o left sided flank pain and possible kidney stone. CTAP with 2 nonobstructing left renal calculi measuring up to 5mm. D/C'ed with etodolac, oxycodone and flexeril. Presented to ED last evening (06/04/25) with c/o intractable left-sided, localized lumbar pain. MRI of lumbar spine with appreciation of L2-L3 disc herniation compressing L3 nerve root. Reports numbness and tingling sensation to left anterior thigh area with localized left sided lumbar pain. Reports relief of pain with Morphine dosing. Cannot tolerate steroids as he finds it aggravates symptoms from prior Lyme's infection. Denies cauda equina symptoms. Seen by Dr. Mac this am with recommendation for consultation with interventional pain and possible epidural steroid injection vs surgical intervention. Patient seen by interventional pain this afternoon and is opting to proceed with surgery if indicated per Dr Mac. Dr. Mac provided update and patient will be slated for surgery tomorrow. Review of Systems Review of Systems: All systems reviewed & are unremarkable except as noted in Subjective Physical Exam Physical Exam: GENERAL APPEARANCE: A&O. Sitting comfortably on stretcher. NAD. SKIN: Normal color without rashes or lesions. Normal turgor. HEENT: Head AT/NC. Buccal mucosa is moist and pink. NECK: No jugular venous distention. No thyroid enlargement. There is no lymphadenopathy. HEART: RRR without m/g/r LUNGS: Normal inspiratory effort. CTA without w/r/r ABDOMEN: No guarding or rigidity. Normoactive BS in all four quadrants. Abdomen soft and NT. MSK: No bony gross/deformities throughout. ROM intact. TTP left lumbar area. EXTREMITIES: No edema, No peripheral cyanosis. Decreased sensation with touch to left anterior thigh. 5/5 strength in BL lower ext. +dorsiflexion/plantar flexion of BL lower ext. Sensation intact to BL lower ext. Neuro: CN 2-12 grossly intact. No focal neuro deficits PSYCHIATRIC: Normal affect. Eye contact is good. Speech is normal rate and content. Responses are appropriate. Results & Data Results & Data Vital Signs (Past 12 Hours) Vital Signs Temp Pulse Pulse Pulse Resp BP BP 06/05/25 13:01 90 06/05/25 11:15 36.7 C 73 18 121/76 06/05/25 07:39 36.5 C 90 18 127/78 06/05/25 05:51 64 06/05/25 04:00 36.6 C 78 18 131/79 Pulse Ox O2 Del Method 06/05/25 13:01 06/05/25 11:15 100 Room Air 06/05/25 07:39 100 Room Air 06/05/25 05:51 06/05/25 04:00 97 Room Air PG Care Time/CCT Total # of Minutes Spent Total Time Spent with Patient: Total time spent is greater than 50% in coordination of care (as documented) at patient's floor/unit and/or counseling patient: Coding Level of Care Code 31089 SUB INP/OBS CARE 3/50MIN Diagnoses Lumbar disc herniation M51.26 Back pain M54.9 Radiculopathy M54.10"
--- NOTE | 2025-06-06 09:07 | History & Physical Bridge Note ---
Date of Service June 06, 2025 History & Physical Bridge Note I have examined the patient, reviewed the History & Physical and in the interval since the performance of the History & Physical I have noted the following changes of clinical significance: no changes noted Patient continues to require IV narcotic medication to control his pain. He is taking it regularly. He has marked deficits with hip flexion on the left at a 3/5 compared to 5/5 on the right. In light of his narcotic requirements and progressive neurologic deficits in order to avoid permanent functional loss I am recommending emergent lumbar laminectomy L2-L3 on the left.
[2025-06-06] MEDS ORDERED: DEXAMETHASONE SOD INJ 4 MG/ML VIAL ONE (10:31)
[2025-06-06] MEDS ORDERED: LIDOCAINE 2% 2 ML VIAL/AMP(20MG/ML) INFIL ONE (10:31)
[2025-06-06] MEDS ORDERED: ONDANSETRON INJ 2 MG/ML 2 ML VIAL ONE (10:31)
[2025-06-06] MEDS ORDERED: ROCURONIUM BROMIDE 10 MG/ML 5 ML VIAL IV ONE (10:31)
[2025-06-06] MEDS ORDERED: GLYCOPYRROLATE 0.2 MG/ML VIAL ONE (10:31)
[2025-06-06] MEDS ORDERED: NEOSTIGMINE METHYLSULFATE 1 MG/ML 10ML VIAL ONE (10:31)
[2025-06-06] MEDS ORDERED: PROPOFOL IV EMULSION 10 MG/ML 20 ML VIAL IV ONE (10:31)
[2025-06-06] MEDS ORDERED: MIDAZOLAM HCL 1 MG/ML 2ML VIAL ONE (10:32)
[2025-06-06] MEDS: LACTATED RINGER'S 1,000 ML IV SCH (10:45)
[2025-06-06] MEDS ORDERED: HYDROmorphone INJ 2 MG/ML SYR/VIAL IV PRN (10:47)
[2025-06-06] MEDS ORDERED: ATROPINE SULFATE 0.1 MG/ML 10ML SYR IV PRN (10:47)
[2025-06-06] MEDS ORDERED: ONDANSETRON INJ 2 MG/ML 2 ML VIAL IV PRN ×2 (10:47→13:44)
[2025-06-06] MEDS ORDERED: SUGAMMADEX SODIUM 200 MG/2 ML VIAL IV ONE (11:57)
--- NOTE | 2025-06-06 12:11 | Hospitalist Progress Note ---
"Date of Service June 06, 2025 Assessment & Plan (1) Lumbar disc herniation: (2) Back pain: (3) Radiculopathy: Plan #Lumbar disc herniation|lumbar back pain|radiculopathy -NSR 60s-100s med-tele Bladder scan with straight cath as needed Tylenol 1 g PO TID scheduled Toradol 30 mg IV every 6 hours as needed -Morphine 2-4 mg IV every 3 hours based on pain scale Flexeril 10 mg po BID PRN for lumbar spasms PT/OT -pain management consultation signed off as patient opted to proceed with surgery and not trial epidural steroid injection -scheduled surgery today with Dr. Mac #DVT prophylaxisSCDs Admission and Anticipated Discharge Date Admission Date: June 04, 2025 Subjective Patient seen this am prior to going to OR for lumbar laminectomy L2-L3 on the left with Dr. Mac. Visibly uncomfortable sitting up at the bedside with present. Consistently taking IV Morphine for relief of radiculopathy pain. Has been [employer] since [place]. Review of Systems Review of Systems: All systems reviewed & are unremarkable except as noted in Subjective Physical Exam Physical Exam: SKIN: Normal color without rashes or lesions. Normal turgor. HEENT: Head AT/NC. Buccal mucosa is moist and pink. HEART: RRR without m/g/r LUNGS: Normal inspiratory effort. CTA without w/r/r ABDOMEN: No guarding or rigidity. Normoactive BS in all four quadrants. Abdomen soft and NT. MSK: No bony gross/deformities throughout. ROM intact. TTP left lumbar area. EXTREMITIES: No edema, No peripheral cyanosis. Decreased sensation with touch to left anterior thigh. 5/5 strength in RLE, 4/5 LLE. +dorsiflexion/plantar flexion of BL lower ext. Sensation intact to BL lower ext. Neuro: CN 2-12 grossly intact. No focal neuro deficits PSYCHIATRIC: Normal affect. Eye contact is good. Speech is normal rate and content. Responses are appropriate. Results & Data Results & Data Vital Signs (Past 12 Hours) Vital Signs Temp Pulse Pulse Resp BP BP Pulse Ox 06/06/25 10:47 36.8 C 105 H 18 141/88 H 100 06/06/25 08:24 36.7 C 82 16 128/76 128/76 99 06/06/25 07:04 66 06/06/25 04:00 36.7 C 70 18 143/84 H 94 06/06/25 00:21 98 H O2 Del Method 06/06/25 10:47 Room Air 06/06/25 08:24 Room Air 06/06/25 07:04 06/06/25 04:00 Room Air 06/06/25 00:21 PG Care Time/CCT Total # of Minutes Spent Total Time Spent with Patient: Total time spent is greater than 50% in coordination of care (as documented) at patient's floor/unit and/or counseling patient: Coding Level of Care Code 42901 SUB INP/OBS CARE 3/50MIN Diagnoses Lumbar disc herniation M51.26 Back pain M54.9 Radiculopathy M54.10"
[2025-06-06] MEDS: BUPIVACAINE/EPINEPHRINE 0.25% 1:200,000 30 ML VIAL ONE (12:14)
--- NOTE | 2025-06-06 12:14 | Operative Report ---
Post Operative Report Pre & Post Diagnosis Operation Date: 06/06/25 12:55 Pre-Op Diagnosis: L2-3 lumbar disc herniation with radiculopathy neurologic deficit Post-Op Diagnosis: Same I identified the patient and participated in the time-out.: Yes Procedure Operation Date: 06/06/25 12:55 Actual Procedures Lumbar laminotomy L to L3 on the left with excision of herniated free fragment Surgeon Hoang Mac DO Preparation Supervisor Yg Wade Estimated Blood Loss 50 Findings Consistent with Post-Op Diagnosis Specimens None Indications This is a 49-year-old male that presents with severe lumbar radiculopathy. Patient required hospital admission and IV narcotics to control his pain. He is progressive neurologic deficit with his hip flexors on the left and subsequently here for emergent laminotomy discectomy. Description of Procedure Patient was met with identified and informed m consent obtained. Patient was then taken to the operative suite underwent patient placed in a prone position on the Javi table atop the Dandre frame. All bony prominences well-padded eyes inspected to ensure no external pressure placed upon them. This point lumbar spine was prepped and draped in normal sterile fashion. The assistance of fluoroscopy identified the L2-L3 level. Sharp dissection with the assistance of Bovie cautery from down to and exposing the interlaminar space of L2-L3. I then created a laminotomy on the left large enough to access the L2 pedicle on the left. I excised the lateral portion of ligamentum flavum. Was able to identify several large fragments of loose material along the left L2 pedicle. They removed in their entirety. The area was explored several times to ensure all fragments addressed. Was then copiously irrigated. Versa wrap placed over the exposed dura. Incision then closed with 1 Vicryl the fascia 2-0 Vicryl subcutaneously and 4 Monocryl for final skin closure. Steri-Strips and sterile dressing placed. Patient waken taken to PACU in stable condition. Please note Yg Wade was present of the entire surgery and while the patient positioning complex portion of the surgery and final skin closure. I attest to the content of the Intraoperative Record and any orders documented therein. Any exceptions are noted below.
[2025-06-06] MEDS: ceFAZolin 330 MG/ML 1 GM VIAL ONE (12:15)
[2025-06-06] MEDS ORDERED: LORazepam Inj 0.5 MG in SYRINGE 0.25 ML IV PRN (13:44)
[2025-06-06] MEDS ORDERED: DO NOT ADMINISTER FLU VACCINE PRN (13:44)
[2025-06-06] MEDS ORDERED: KETOROLAC 30 MG/ML VIAL IV PRN (13:44)
[2025-06-06] MEDS ORDERED: ACETAMINOPHEN 1,000 MG/100 ML VIAL IV PRN (13:44)
[2025-06-06] MEDS ORDERED: DO NOT ADMINISTER PNEUMOCOCCAL VACCINE PRN (13:44)
[2025-06-06] MEDS ORDERED: ONDANSETRON 4 MG OD TAB PO PRN (13:44)
[2025-06-06] MEDS ORDERED: ACETAMINOPHEN 500 MG TAB PO PRN (13:44)
[2025-06-06] MEDS ORDERED: ALUMINUM/MAGNESIUM SUSP 30 ML UDC PO PRN (13:44)
[2025-06-06] MEDS ORDERED: diphenhydrAMINE Capsule 25 MG CAP PO PRN (13:44)
[2025-06-06] MEDS ORDERED: HYDROmorphone INJ 0.5 MG/0.5 ML SYR IV PRN (13:44)
[2025-06-06] MEDS ORDERED: NALOXONE HCL 0.4 MG/1 ML VIAL/CARP IV PRN (13:44)
[2025-06-06] MEDS ORDERED: MAGNESIUM HYDROXIDE SUSP 30 ML UDC PO PRN (13:44)
[2025-06-06] MEDS ORDERED: LORazepam 0.5 MG TAB PO PRN (13:44)
[2025-06-06] MEDS ORDERED: HYDROmorphone INJ 1 MG/ML SYRINGE IV PRN (13:44)
[2025-06-06] MEDS ORDERED: SOD PHOSPHATE/SOD BIPHOSPHATE ENEMA 132 ML BTL PR PRN (13:44)
[2025-06-06] MEDS ORDERED: FAMOTIDINE 20 MG TAB PO PRN (13:44)
[2025-06-06] MEDS ORDERED: METOCLOPRAMIDE HCL INJ 5 MG/ML 2 ML VIAL IV PRN (13:44)
[2025-06-06] MEDS ORDERED: PROMETHAZINE 12.5 MG/50.5 ML BAG IV PRN (13:44)
--- NOTE | 2025-06-06 14:17 | Fluoroscopy Report ---
FL spine 1V any level CLINICAL HISTORY: L2-L3 LAMI COMPARISON STUDY: None FLUOROSCOPY TIME: 4 seconds FLUOROSCOPY IMAGES: 2 EXPOSURE DOSE: 3.5 mGy FINDINGS: Fluoroscopy was provided for lumbar surgery. IMPRESSION: Intraoperative fluoroscopy. ACT 112: Negative or not required by law. Electronically signed by: Charanjit Harvey M.D. 06/06/2025 2:15 PM
--- NOTE | 2025-06-06 14:30 | Anesthesiology Progress Note ---
Date of Service June 06, 2025 Anesthesia Post Procedure Vital Signs Vital Signs: Temp Pulse Pulse Pulse Resp BP BP 06/06/25 13:15 36.6 C 81 16 129/74 06/06/25 13:05 95 H 17 130/78 06/06/25 12:55 36.0 C L 101 H 14 126/89 06/06/25 10:47 36.8 C 105 H 18 141/88 H 06/06/25 08:24 36.7 C 82 16 128/76 128/76 06/06/25 07:04 66 06/06/25 04:00 36.7 C 70 18 143/84 H 06/06/25 00:21 98 H 06/06/25 00:00 36.7 C 88 18 134/82 06/05/25 19:30 37.1 C 104 H 18 149/84 H 06/05/25 15:28 37.0 C 85 18 136/80 Pulse Ox O2 Del Method O2 Flow Rate 06/06/25 13:15 99 Room Air 06/06/25 13:05 99 Room Air 06/06/25 12:55 99 Oxymask 2 06/06/25 10:47 100 Room Air 06/06/25 08:24 99 Room Air 06/06/25 07:04 06/06/25 04:00 94 Room Air 06/06/25 00:21 06/06/25 00:00 98 Room Air 06/05/25 19:30 99 Room Air 06/05/25 15:28 97 Room Air Pain Intensity Left Flank: Pain Intensity: 7 Back: Pain Intensity: 1 Transfer of Care Handoff Completed per policy Notes Mental Status: alert / awake / arousable Patient Amnestic to Procedure: Yes Nausea / Vomiting: adequately controlled Pain: adequately controlled Airway Patency, RR, SpO2: stable & adequate BP & HR: stable & adequate Hydration State: stable & adequate Anesthetic Complications: no major complications apparent and Pt Satisfied with anesthetic care
[2025-06-06] MEDS: dexAMETHasone 6 MG in SYRINGE 0 ML IV SCH (15:01)
[2025-06-06] MEDS: SODIUM CHLORIDE 0.9% 1,000 ML IV SCH (15:02)
[2025-06-06] MEDS: DOCUSATE SODIUM/SENNA 50/8.6MG TAB PO SCH (19:49)
[2025-06-06 23:44] VITALS: RESP 20
[2025-06-07] MEDS: POLYETHYLENE (MIRALAX) 17 GM PACK PO SCH (06:04)
[2025-06-07 09:05] VITALS: BP 115/68; PULSE 80; TEMP 98.6; O2SAT 98
--- NOTE | 2025-06-07 10:19 | Orthopedic Progress Note ---
Date of Service June 07, 2025 Assessment & Plan (1) Lumbar disc herniation: Plan: This time the patient's pain is markedly improved. He is no longer requiring IV narcotic medication. He is tolerating ambulation. I will discharge him home to follow-up in 2 weeks. Admission and Anticipated Discharge Date Admission Date: June 04, 2025 Subjective Patient's leg pain is markedly improved. Still some residual numbness. He has been up and ambulating. Physical Exam Physical Exam: Patient is very comfortable. Extra strength testing. Marked improvement of hip flexion on the left compared to his preoperative status. Results & Data Vital Signs (Past 12 Hours) Vital Signs Temp Pulse Resp BP Pulse Ox O2 Del Method 06/07/25 09:04 37 C 80 115/68 98 Room Air 06/06/25 23:42 37.1 C 123 H 20 135/76 94 Room Air
--- NOTE | 2025-06-07 16:30 | Discharge Summary ---
Discharge Summary Date of Service June 07, 2025 Principal Dx & Hospital Course #1 = Principal Diagnosis (1) Lumbar disc herniation: (2) Back pain: (3) Radiculopathy: Plan Mr. Winters underwent left L2-L3 laminectomy on 06/06/[address] Mac. uncomplicated postop course. Felling much better - back pain has essentially resolved some residual numbness left thigh. Strength intact and up walking around without difficulty. Used no opioids postop. return to work letter written. he understands his spine precautions and lists them for me. follow up with Dr. Mac in 2 weeks Admission HPI Per Admitting Provider Sp Winters is a 49yo male with history of Lyme presenting with severe pain in the left back with numbness left thigh. Patient was seen in the ER on 05/28 and thought to have renal stones. He was discharged home on pain management. He has been taking oxycodone every 4 hours as well as a muscle relaxer and ibuprofen but has not had ongoing severe pain. Also with numbness in the left lateral thigh. Symptoms have been ongoing for the last 3 to 4 days. No falls or trauma. He was having some back pain earlier in the week which acutely worsened after he knelt down to tie his shoe. Did not hear a pop or crack. Initially reports some difficulty starting his urinary stream but that has since resolved. Otherwise, denies bowel or bladder complaints. In the ER patient is afebrile, mildly hypertensive otherwise doing well Discharge Plan Discharge Items Patient Disposition: Home - Self-Care Reason For Visit: BACK PAIN, LLE NUMBNESS Discharge Diagnosis: Lumbar disc herniation with radiculopathy and neurologic deficit Condition on Discharge: Fair Activity: As commented below Non-emergency contact: Primary Care Provider Call non-emergency contact if: you have any medication questions Follow-up/Referrals: ProEsteban MD [Primary Care Provider] - Diet: Regular Addtl Attending Provider Instructions: ACTIVITY RECOMMENDATIONS: SELF CARE INSTRUCTIONS AFTER A LAMINECTOMY 1. No prolonged sitting (less than 30 minutes for the first 3 weeks after surgery). 2. No bending, lifting more than 5 pounds, or twisting (roll like a log when turning in bed). 3. You may shower 3 days after surgery if no drainage from wound. Thoroughly dry wound. Do not soak in the tub. 4. Please walk as much as you can for exercise. Gradually increase the distance that you walk as your endurance increases. 5. You may drive in 7-10 days if you are comfortable and no longer requiring pain medications. 6. You may return to previous diet. SPECIAL CARE INSTRUCTIONS: VERY IMPORTANT TO READ AND REVIEW A. Your surgical incision has been closed with a cosmetic suture under the skin that will dissolve in about 6 weeks. In 14 days, you can use a pair of clean scissors and cut the suture that is left outside of the skin at the ends of your incision. B. Complications are uncommon, but please contact us if you have any signs or symptoms of: 1. wound infection (fever higher than 102.5 degrees F, redness, separation of wound, drainage, or increasing pain from the incision) 2. blood clots in legs (pain, swelling, redness and warmth in legs) 3. urinary tract infection (fever higher than 102.5 degrees, burning upon urination or increased frequency of urination) 4. nerve problems (inability to walk on your toes or heels, numbness, loss of bowel or bladder control) 5. any other symptoms that concern you. C. Please call the office at if you have any concerns or questions about your operation or recovery. MANAGING PAIN AFTER SPINAL SURGERY 1. Narcotic medication is intended for short-term use and will be provided for surgical pain. Surgical pain usually lasts for a period of 4-6 weeks. Narcotic medication includes Percocet, Vicodin, Darvocet, Tylenol #3 or Lortab. 2. Longer-term pain is more appropriately treated with non-narcotic medication such as Tylenol ES. 3. Muscle spasm is not appropriately treated with narcotics. Muscle relaxers such as Soma, Flexeril or Skelaxin can be used along with Tylenol ES. 4. Remember that we all live with some "aches and pains". This is not unusual or uncommon after an injury or as we get older. 5. We will provide appropriate medication within the normal guidelines of their prescribed use. We will also be very cautious and aware of potential abuse and extended duration of patients' medication needs. 6. Please allow 2-3 days to process refills. Prescriptions will not be mailed but must be picked up at the office. FOLLOW UP VISIT: Keep your scheduled follow-up appointment. Any questions, please call the office at . Pending Studies at Discharge: No Stand-Alone Forms: My [facility], Work/School Release, Smoking Cessation Medications and DC Order Prescriptions: New oxycodone 5 mg tablet 5 mg PO Q6H PRN (Reason: pain) Qty: 20 0RF Continued ibuprofen 200 mg capsule 400 - 800 mg PO DIRECTED PRN (Reason: Pain) cholecalciferol (vitamin D3) [Vitamin D3] 25 mcg (1,000 unit) Tablet 25 mcg PO DAILY Lactobacillus acidophilus 500 million cell Capsule 500 mmu cells PO DAILY testosterone cypionate 200 mg/mL Syringe See Rx Instructions .ROUTE .COMPLEX Rx Instructions: TAKES 100 MG ON WEDNESDAYS, THEN 200 MG ON SUNDAYS GIVEN IM. Methylated Multivitamin 1 tab PO DAILY Discharge Orders: Discharge Order (Routine); Ordered 06/07/25 Ordered By: Hoang Mac Admission Data Admit Date/Time: 06/04/25 20:23 Attending Provider: Ella Banks Admit Provider: Nitza Moscoso Primary Care Provider: Esteban Miguel Other Providers: Nitza Moscoso; Camille Fragoso; Hoang Mac Other Interventions: Discharge Summary Assessment (RN) Last Done: 06/07/25 12:38 Hospital Stay Data Consultations 06/04/25 19:30 ED Decision to Admit Stat 06/05/25 08:29 Consult Pain Management Routine 06/05/25 09:31 Consult Orthopedic Spine Surgery Routine Procedures Performed Operation Date: 06/06/25 12:55 Actual Procedures p Left L2-L3 Laminectomy(Left) - Hoang Mac DO Diagnostic Imagining Performed 06/04/25 13:08 MR lumbar spine wo con Stat MR thoracic spine wo con Stat 06/06/25 12:55 FL spine 1V any level Routine Pending Results Patient Have Any Pending Studies at Discharge: No Discharge Instructions Given to Patient (Per Discharging Provider) ACTIVITY RECOMMENDATIONS: SELF CARE INSTRUCTIONS AFTER A LAMINECTOMY 1. No prolonged sitting (less than 30 minutes for the first 3 weeks after surgery). 2. No bending, lifting more than 5 pounds, or twisting (roll like a log when turning in bed). 3. You may shower 3 days after surgery if no drainage from wound. Thoroughly dry wound. Do not soak in the tub. 4. Please walk as much as you can for exercise. Gradually increase the distance that you walk as your endurance increases. 5. You may drive in 7-10 days if you are comfortable and no longer requiring pain medications. 6. You may return to previous diet. SPECIAL CARE INSTRUCTIONS: VERY IMPORTANT TO READ AND REVIEW A. Your surgical incision has been closed with a cosmetic suture under the skin that will dissolve in about 6 weeks. In 14 days, you can use a pair of clean scissors and cut the suture that is left outside of the skin at the ends of your incision. B. Complications are uncommon, but please contact us if you have any signs or symptoms of: 1. wound infection (fever higher than 102.5 degrees F, redness, separation of wound, drainage, or increasing pain from the incision) 2. blood clots in legs (pain, swelling, redness and warmth in legs) 3. urinary tract infection (fever higher than 102.5 degrees, burning upon urination or increased frequency of urination) 4. nerve problems (inability to walk on your toes or heels, numbness, loss of bowel or bladder control) 5. any other symptoms that concern you. C. Please call the office at if you have any concerns or questions about your operation or recovery. MANAGING PAIN AFTER SPINAL SURGERY 1. Narcotic medication is intended for short-term use and will be provided for surgical pain. Surgical pain usually lasts for a period of 4-6 weeks. Narcotic medication includes Percocet, Vicodin, Darvocet, Tylenol #3 or Lortab. 2. Longer-term pain is more appropriately treated with non-narcotic medication such as Tylenol ES. 3. Muscle spasm is not appropriately treated with narcotics. Muscle relaxers such as Soma, Flexeril or Skelaxin can be used along with Tylenol ES. 4. Remember that we all live with some "aches and pains". This is not unusual or uncommon after an injury or as we get older. 5. We will provide appropriate medication within the normal guidelines of their prescribed use. We will also be very cautious and aware of potential abuse and extended duration of patients' medication needs. 6. Please allow 2-3 days to process refills. Prescriptions will not be mailed but must be picked up at the office. FOLLOW UP VISIT: Keep your scheduled follow-up appointment. Any questions, please call the office at . Total Time Total Time Spent Total Time Spent (In Minutes): <30 Coding Level of Care Code 75061 IN/OBS DISCH 30 MIN/LESS Diagnoses Lumbar disc herniation M51.26 Back pain M54.9 Radiculopathy M54.10
== END 2025-06-07 14:43 | disposition home or self-care (01) | DRG 517 ==
LOC: ED 12:21 → 2N 20:23 → SUATTDRO 20:23 → 2N 21:53